=== PATIENT | female | born 1935 | race Caucasian/White ===

== ENCOUNTER → 2019-05-01 | Outpatient (CLI) | payer MEDICARE, OTHER, SELFPAY | END | disposition home or self-care (01) | PROVIDERS: Referring Provider Otolaryngology; Visit Provider Otolaryngology | DX: J32.2 Chronic ethmoidal sinusitis (principal) | CPT/HCPCS: 87070; 87205 ==

== ENCOUNTER 2020-01-12 08:35 | Day surgery (SDC) | payer MEDICARE, OTHER, SELFPAY ==
[2020-01-12] VITALS (9 sets, daily range): BP systolic 112–141; BP diastolic 45–82; PULSE 59–86; RESP 15–18; TEMP 36.5–36.8; O2SAT 92–97; BMI 35.7
[2020-01-12] MEDS: Lactated Ringers 1,000 ML 100 ML IV (09:09)
[2020-01-12 09:50] LABS: Anion Gap 5 (5-15); BUN 16 mg/dL (7-18); BUN/Creat Ratio 19.4 RATIO (10-20); Calcium,Total 8.6 mg/dL (8.5-10.1); Chloride 109 mmol/L (98-107); Creatinine, Serum 0.82 mg/dL (0.55-1.02); EST Glomerular Filtration Rate 71 mL/min (>60); Est Glom Filt Rate - Afr Amer 85 mL/min (>60); Estimated Creatinine Clearance 41.83 ml/min; Glucose 87 mg/dL (74-106); Potassium 3.9 mmol/L (3.5-5.1); Sodium Level 140 mmol/L (136-145)
--- NOTE | 2020-01-12 10:30 | ETH_PTH ---
PATIENT: DAYA ROSS LOC: [facility] [place] U#:[id number] AGE/SX: 84/F ROOM: RE01/12/[address]: Dr. Douglas Jain MD : [id number] BED: DIS: 01/12/2020 SPEC #: [id number] RECD: 01/12/20 12:49 STATUS: CHRISTINA REDonaldo #: [id number] ROBERTO: 01/12/20 10:[address]: Douglas Jain DEPT: SURGICAL PATHOLOGY RECD BY: Ayad Fernandez ENTERED: 01/12/20 13:38 SP TYPE: ETH TISS OTHR DR: Dr. Donald Acosta MD Tissues: A - Ethmoid sinus, NOS B - Ethmoid sinus, NOS Procedures: Decalcification bone/plaque Surgery Specimen Level IV HEADER OPERATION: Endoscopy with removal of right sphenoid sinus tissue PRE-OP DIAGNOSIS: Chronic frontal sinusitis; chronic sphenoid sinusitis TISSUE SUBMITTED: A - Left sinus contents, B - Right sinus contents MICROSCOPIC DIAGNOSIS A. Left sinus contents: Fragments of respiratory mucosa with chronic inflammation. B. Right sinus contents: Fragments of respiratory mucosa with chronic inflammation. WILFREDO:giorgio 01/18/20 MICROSCOPIC DESCRIPTION Slides are reviewed. GROSS DESCRIPTION A - Received in fixative is one container labeled with the patient's name and designated left sinus contents. The specimen consists of multiple fragments of hemorrhagic soft tissue mixed with mucoid tissue and possible fragments of bone that in aggregate measure 7.5 x 3 x 0.3 cm. The entire specimen is submitted in three cassettes after decalcification. B - Received in fixative is one container labeled with the patient's name and designated right sinus contents. The specimen consists of multiple fragments of hemorrhagic soft tissue mixed with possible fragments of bone that in aggregate measure 7.5 x 3 x 0.3 cm. The entire specimen is submitted in three cassettes after decalcification. / WILFREDO:giorgio 01/15/20 TC: 3 CPT: 93937 x2, 26738 x2
[2020-01-12] MEDS: Oxymetazoline 0.05% 1 SPRAY SPRAY.BTL 15 SPRAY (11:00)
[2020-01-12] MEDS: Lidocaine 4% 50 ML Bottle (11:00)
--- NOTE | 2020-01-12 11:56 | PCM.OPRPT ---
Problem List (1) Polyp of nasal cavity Status: Chronic (2) Chronic frontal sinusitis Status: Chronic (3) Chronic sphenoidal sinusitis Status: Chronic Report of Operation Date of Procedure: 01/12/20 Pre-Operative Diagnosis: Chronic nasal polyposis, chronic frontal sinusitis, chronic sphenoid sinusitis Post-Operative Diagnosis: Same Surgery/Procedure Performed:: Endoscopic removal of nasal polyps, bilateral frontsl sinus exploration with removal of tissue and polyps, right sphenoidotomy with removal of polyps Description of Surgical Findings:: Joan is an 84-year-old female with chronic nasal polyposis and frequent sinusitis. She is undergone previous sinus surgery for nasal polyps and has had recurrence of nasal polyps and progressive worsening of right-sided forehead pain with CT scan showing chronic frontal and sphenoid sinusitis on that side. She was counseled regarding the procedure in hopes of improvement of these complaints was eager to proceed. The risks, alternatives, potential complications, and benefits were discussed at length and any questions answered to the patient and/or caregiver's satisfaction. Witnessed informed consent was obtained in the office, and the patient and/or caregiver was agreeable to proceed. Procedure went as follows: The patient was identified in the preoperative holding and brought to the operating room, was placed under general anesthesia and intubated. When appropriate anesthesia was obtained, the navigational head gear was placed and confirmed to be operational in accordance with the life sciences director's directions. Pledgets soaked in a 50-50 mixture of oxymetazoline and 4% topical lidocaine were placed to decongest the nasal mucosa. These were then removed and beginning on the left side using a 0? endoscope the nasal cavity examined. The insertion of the middle turbinate remnant was then injected with 1% lidocaine with 100,000 epinephrine for a total of 4 mL, and a similar injection was then carried on the contralateral side. Upon returning to the left side, the polyps of the remnant of the middle turbinate and ethmoid sinus were removed with the microdebrider. Anteriorly the polyps were then removed with a J curette and the frontal recess evaluated. There is no to be extensive obstructing polyps and these were then removed. This allowed for the frontal sinus to the been entered and irrigated with saline which resulted in a large clump of mucoid debris that that was removed and sent for culture. Attention was then turned to the contralateral side with similar findings were noted with the additional finding of obstruction of the right sphenoid sinus by polyp point tissue which was removed and the sinus ostia widened although this was noted to be remarkably stenosed which limited the extent of opening. Within the frontal sinus purulent discharge was encountered and after opening the sinus then again copiously irrigated saline until clear. Pledgets soaked in oxymetazoline were then placed for hemostasis and on removal Floseal hemostatic agent was then applied. The patient returned to anesthesia, revived and extubated having tolerated the procedure well. Type of Anesthesia:: General Anesthesiologist: Manuel Kirkland Special Medications: none Specimen's removed: sinus contents Drains: none Estimated Blood Loss (mL): 250 mL Fluids Replaced: 1500 mL Grafts/Implants Used: none - Complications none - Admit VTE Documentation VTE Present on Admission: No VTE Mechan Device Prophylaxis: SCD's VTE Pharm Prophylaxis ordered?: No
--- NOTE | 2020-01-12 12:02 | DCINST_ITS ---
- Discharge Diagnoses Current Active Problems: Current Active and Chronic Problems Polyp of nasal cavity (Chronic) Chronic frontal sinusitis (Chronic) Chronic sphenoidal sinusitis (Chronic) You will use the following diet at home:: No restrictions Discharge Activity: Return to Normal Activity Call your doctor if your incision/area has: Sudden Increased Bleeding, Foul Smelling Discharge Call your doctor if you observe: Fever of 101 or Higher, Uncontrolled pain Allergies/Adverse Reactions: Allergies aspirin [ASA] Allergy (Verified 01/12/20 08:45) Other ASTHMA ATTACK latex Allergy (Verified 01/12/20 08:45) Itching Penicillins [PCN] Allergy (Verified 01/12/20 08:45) Hives Medications to take at Discharge Calcium Carbonate/Vitamin D3 [Caltrate 600 Plus D3 Tablet] 2 ea PO DAILY 0 01/05/20 Fluticasone/Salmeterol [Advair 500-50 Diskus] 1 ea IH BID 01/05/20 Losartan Potassium [Cozaar] 50 mg PO DAILY 01/05/20 Mometasone Furoate [Nasonex] 1 spray NASAL BID 01/05/20 Montelukast Sodium [Singulair] 10 mg PO DAILY 01/05/20 Psyllium Husk [Metamucil] 5 tab PO DAILY 01/05/20 Vit A/Vit C/Vit E/Zinc/Copper [Preservision Areds Softgel] 1 ea PO DAILY 01/05/20 Primary Care Physician: Donald Acosta MD [Primary Care Provider] - Test Results: Test results from this visit will be discussed in further detail at your follow- up appointment, if applicable. Please Follow Up With: Douglas Jain MD When: 2 weeks
[2020-01-12] MEDS: Acetaminophen 500 MG Tablet PO (13:58)
== END 2020-01-12 14:52 | disposition home or self-care (01) ==
LOC: SDC 08:35 → AC 08:37
PROVIDERS: PCP Family Medicine; Referring Provider Otolaryngology; Visit Provider Otolaryngology
PROC: (CPT 31276; principal; 2020-01-12 10:00)
DX: J32.1 Chronic frontal sinusitis (principal); J32.3 Chronic sphenoidal sinusitis; J33.9 Nasal polyp, unspecified; I10 Essential (primary) hypertension; E78.00 Pure hypercholesterolemia, unspecified; G47.30 Sleep apnea, unspecified; Z91.19 Patient's noncompliance with other medical treatment and regimen; J45.909 Unspecified asthma, uncomplicated; M19.90 Unspecified osteoarthritis, unspecified site; Z87.19 Personal history of other diseases of the digestive system; Z79.899 Other long term (current) drug therapy; Z87.891 Personal history of nicotine dependence
CPT/HCPCS: 00160; 31276; 31288; 36415; 80048; 87015; 87070; 87075; 87077; 87102; 87116; 87205; 87206; 88305; 88311; J7120; J2405